=== PATIENT | male | born 2000 | race African-American/Black ===

== ENCOUNTER 2018-06-29 23:03 | Emergency (ER) | payer SELFPAY ==
[~2018-06-29] VITALS: Ht 180.3 cm; Wt 91.0 kg
[2018-06-29 23:11] VITALS: BP 130/80
== END 2018-06-30 04:34 | disposition left against medical advice (07) ==
LOC: ER 23:03
DX: Z53.21 Procedure and treatment not carried out due to patient leaving prior to being seen by health care provider (principal)

== ENCOUNTER 2018-06-30 12:01 | Emergency (ER) | payer SELFPAY ==
[~2018-06-30] VITALS: Ht 180.3 cm; Wt 93.0 kg
[2018-06-30 13:02] VITALS: BP 122/68
== END 2018-06-30 13:03 | disposition home or self-care (01) ==
LOC: ER 12:01
DX: H10.022 Other mucopurulent conjunctivitis, left eye (principal)
CPT/HCPCS: 99283

== ENCOUNTER 2018-07-07 12:27 | Emergency (ER) | payer OTHER ==
[~2018-07-07] VITALS: Ht 180.3 cm; Wt 97.0 kg
[2018-07-07 13:55] VITALS: BP 123/81
== END 2018-07-07 13:55 | disposition home or self-care (01) ==
LOC: ER 12:27
DX: J02.9 Acute pharyngitis, unspecified (principal)
CPT/HCPCS: 99281; 99282